=== PATIENT | male | born 1995 | race Hispanic/Latino ===

== ENCOUNTER 2025-04-06 20:31 | Emergency (ER) | payer OTHER ==
[~2025-04-06] VITALS: Ht 172.7 cm; Wt 88.0 kg
[2025-04-06 20:36] VITALS: BP 158/74; PULSE 89; RESP 20; TEMP 89
--- NOTE | 2025-04-06 21:14 | EKG ---
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
--- NOTE | 2025-04-06 21:18 | ERN ---
ED Note History of Present Illness Stated Complaint: C/O SOB, DIZZINESS, ABD DISCOMFORT,WEAKNESS Chief Complaint: Dizzy/Light Headed Time Seen by MD: 20:36 Dictation: 29-year-old male presents to ER complaints of anxiety. Patient states he has history of anxiety. Prior to arrival he had an episode felt his heart racing. Allergies: Coded Allergies: No Known Allergies (Unverified Allergy, Unknown, 04/06/25) Home Meds Active Scripts Hydroxyzine HCl (Hydroxyzine HCl) 25 Mg Tablet, 1 TAB PO BID for anxiety, #10 TAB 0 Refills Prov:MAGDA LÓPEZ NP 04/06/25 Past Medical History Past Medical History: Anxiety Surgical History: None Review of System Dictation Constitutional: Negative for fever,chills, and weight loss Eyes: Negative for injury, pain,redness, and discharge ENT: Negative for injury,pain or swelling Cardiovascular: Negative for chest pain, palpitations, and edema Respiratory: Negative for shortness of breath, cough, wheezing, and pleuritic chest pain Abdomen/GI: Negative for abdominal pain, nausea, vomiting, diarrhea, and constipation Back: Negative for injury and pain : Negative for injury, bleeding and discharge MS/Extremity: Negative for injury and deformity Skin: Negative for rash, and discoloration Neuro: Negative for headache, weakness, numbness, tingling, and seizure Psych: Negative for suicide ideation, homicidal ideation, and hallucinations. Positive for anxiety Allergy/Immunology: Negative for hives, rash, and allergies ALL SYSTEMS NEGATIVE, EXCEPT NOTED ABOVE. Initial Vital Sign VS Vital Signs Date Time Temp Pulse Resp B/P (MAP) Pulse Ox O2 Delivery O2 Flow Rate FiO2 04/06/25 20:36 89.1 89 20 158/74 97 Room Air Physical Exam Dictation General: awake, alert, NAD Head/Face: Normocephalic, atraumatic Eyes: PERRL, EOMI, vision at baseline ENT: oral cavity clear, TMs clear, no signs of infection Neck: Trachea midline, supple, no nuchal rigidity Cardiovascular: RRR, normal S1/S2, No MRGs, no JVD Respiratory: CTAB, no respiratory distress, No rales or wheezes Abdomen: Soft, non-tender, non-distended, normal bowel sounds, no guarding or rebound. Skin: Warm, dry, normal turgor, no rash MS/Extremity: Pulses equal, no cyanosis, neurovascular intact, FROM Neuro: COAx4, GCS 15, strength 5/5, CN 2-12 intact, normal cerebellar exam, normal gait, Psych: Normal behavior and affect normal. Anxious Results (Laboratory/Radiology) Laboratory/Radiology Laboratory Tests Test 04/06/25 21:07 04/06/25 21:20 Troponin I High Sensitivity < 4 ng/L (4-75) L Total Creatine Kinase 90 U/L (21-232) EKG: (+) NSR ED Course ED Course Orders Procedure Category Date Status Time 12 Lead Ekg Tracing- EKG 04/06/25 Complete Technical 21:07 Bedside Troponin-I LAB.ER 04/06/25 In Process (Poc) 21:07 Creatine Kinase, Total LAB 04/06/25 Complete 21:07 Hydroxyzine 25mg Tab PHA 04/06/25 Complete (Atarax 25mg Tab) 22:00 Troponin I High LAB 04/06/25 Complete Sensitivity 22:22 Current Medications Medications (Trade) Dose Ordered Sig/Andrei Route PRN Reason Start Time Stop Time Status Last Admin Dose Admin Hydroxyzine HCl (ATArax 25MG TAB) 25 mg ONCE ONCE PO 04/06/25 22:00 04/06/25 22:01 DC Vital Signs Date Time Temp Pulse Resp B/P (MAP) Pulse Ox O2 Delivery O2 Flow Rate FiO2 04/06/25 20:36 89.1 89 20 158/74 97 Room Air Medical Decision Making MDM MDM: Differential diagnosis: Anxiety, chest pain, stress Rationale: Tests considered and ordered secondary to shared decision making include: labs, ECG and radiology Previous outside records reviewed: Old ER visits. Risk of complication and/or morbidity or mortality of patient management: None Medications-Per medication reconciliation Need for hospitalization: Patient does NOT meet criteria for hospitalization. Need for emergency major/minor surgery: No There are no social concerns with this patient. Prescription drug management Prescriptions will include symptomatic care Patient's prior external medical records from other ER visits were reviewed by me as indicated. Prior testing and results from previous visits were reviewed. Prior tests were taken into account with medical decision making and resource utilization, independent historian/historians were used to obtain complete medical history. I independently interpreted the test that were performed, results were reviewed by me and considered findings on radiology if ordered. Patient VSS, NAD, nontoxic, stable for discharge. Pt given discharge instructions in layman terms and understood, all questions answered. Pt will follow up with PCP and return to the ER if worse. DX & DISP Disposition: Discharge Departure Impression: Primary Impression: Anxiety Additional Impression: Stress Condition: Stable Scripts Hydroxyzine HCl (Hydroxyzine HCl) 25 Mg Tablet 1 TAB PO BID for anxiety, #10 TAB 0 Refills Prov: MAGDA LÓPEZ NP 04/06/25 Additional Instructions: YOUR CARDIAC WORKUP IS NEGATIVE TODAY. FOLLOW-UP WITH YOUR PCP IN 24-72 HOURS AND IN THE EVENT IF SYMPTOMS WORSEN OR AN EMERGENCY OVERNIGHT REPORT TO THE ED IMMEDIATELY Referrals: NONE (PCP) MAGDA LÓPEZ NP Apr 06, 2025 21:18
[2025-04-06] MEDS ORDERED: HYDR-3421 PO (21:46)
== END 2025-04-06 23:24 | disposition home or self-care (01) ==
LOC: EDH 20:31
DX: F41.9 Anxiety disorder, unspecified (principal); F43.9 Reaction to severe stress, unspecified; Z79.899 Other long term (current) drug therapy
CPT/HCPCS: 36415; 82550; 84484; 93005; 99284